=== PATIENT | female | born 1990 | race Caucasian/White ===

== ENCOUNTER → 2018-10-24 | Outpatient (CLI) | payer OTHER ==
--- NOTE | 2018-10-24 14:37 | US ---
EXAMINATION TYPE: US thyroid st tissue head/neck DATE OF EXAM: 10/24/2018 COMPARISON: NONE CLINICAL HISTORY: E07.9 Disorder of thyroid, unspecified. Palpable at left lower neck; patient stated has sore gums left side with known "wisdom tooth" presence. GLAND SIZE: Right Lobe: 4.5 x 2.1 x 1.4 cm Overall Parenchyma: homogenous Left Lobe: 5.0 x 2.3 x 1.7 cm Overall Parenchyma: homogeneous Isthmus Thickness: 0.4 cm NODULES RIGHT: # of nodules measured on right: 0 LEFT: # of nodules measured on left: 1 nodule at patient's palpable. 1. 1.4 X 1.5 x 1.1 cm hypoechoic cystic nodule at the mid pole with well-defined margins. This nod ule is wider than tall and shows no intranodular vascularity. ISTHMUS: # of nodules measured in the isthmus: 0 Bilateral neck scanned: 2 upper neck lymph nodes are noted with larger node = 2.7 x 1.7 x 0.7cm. IMPRESSION: 1. Solitary 1.5 cm simple appearing cystic left thyroid nodule, typically benign. 2. Prominent but nonenlarged lymph nodes are incidentally noted adjacent to the thyroid gland.
== END | disposition home or self-care (01) ==
LOC: RADUSWWP 13:56 → MERGE 14:20
PROVIDERS: ATTEND Family Medicine
DX: E04.1 Nontoxic single thyroid nodule (principal)
CPT/HCPCS: 76536

== ENCOUNTER → 2021-08-23 | Outpatient (CLI) | payer OTHER ==
--- NOTE | 2021-08-24 09:27 | XR ---
EXAM TYPE: LUMBAR SPINE X RAY SERIES COMPARISON: 06/14/2022 HISTORY: Pain TECHNIQUE: 4 views are submitted. FINDINGS: Alignment is anatomic. The pedicles are intact. The transverse processes are intact. There is spon dylolisthesis. Mild narrowing of the disc spaces T11-T12. Spina bifida spina bifida occulta at lumbo sacral junction. Mild superior endplate deformity L1. IMPRESSION: 1. Mild degenerative disc disease lower thoracic spine. 2. Mild superior endplate deformity of L1. If there is a history of previous or recent trauma conside red MRI for further evaluation to exclude mild compression fracture.
--- NOTE | 2021-08-24 09:30 | XR ---
EXAMINATION TYPE: XR thoracic spine 2V DATE OF EXAM: 08/23/2021 COMPARISON: NONE HISTORY: Pain TECHNIQUE: 3 views submitted FINDINGS: Alignment is anatomic. There is no compression deformities. Vertebral body height and disc interspa linda are maintained. Scoliotic curvature of the spine. There is mild disc space narrowing at T11-T12. IMPRESSION: 1. Scoliotic curvature of the spine with mild degenerative disc disease T11-T12. Question a mild supe rior endplate compression deformity of L1. Recommend MRI.
== END | disposition home or self-care (01) ==
LOC: RADXRYALE 15:53
PROVIDERS: ATTEND Nurse Practitioner
DX: M51.34 Other intervertebral disc degeneration, thoracic region (principal); M41.84 Other forms of scoliosis, thoracic region; M43.8X6 Other specified deforming dorsopathies, lumbar region
CPT/HCPCS: 72070; 72100

== ENCOUNTER → 2021-09-15 | Outpatient (CLI) | payer OTHER ==
--- NOTE | 2021-09-15 23:25 | MR ---
EXAMINATION TYPE: MR lumbar spine wo con DATE OF EXAM: 09/15/2021 COMPARISON: Lumbar spine x-ray August 23, 2021 HISTORY: Abnormal x-ray, low back pain that radiates down both legs. Wedge compression fracture. TECHNIQUE: Multiplanar, multisequence imaging of the lumbar spine is performed without IV contrast. FINDINGS: Sagittal images of the lumbar spine redemonstrate stable and satisfactory alignment. Promin ent Schmorl node superior and inferior L1 endplates. Mild anterior wedging correlates with recent x-r ay. The intervertebral discs demonstrate disc desiccation L2-L3 level. Disc space heights are preser patel. The conus medullaris is somewhat low in position ending inferior L2 level without abnormal signa l or clumping of lumbosacral nerve roots. The bone marrow signal intensity is within normal limits. No suspicious edema is present. Axial images show no focal disc disease, or facet degenerative change at any lumbar level. There is no spinal canal stenosis, neural foraminal narrowing, or evidence of nerve root compromise. Paraspina l muscle bulk is maintained. IMPRESSION: Mild chronic wedging or compression of L1 vertebra.
== END | disposition home or self-care (01) ==
LOC: RADMRIMAIN 18:25
PROVIDERS: ATTEND Family Medicine
DX: S32.010B Wedge compression fracture of first lumbar vertebra, initial encounter for open fracture (principal)
CPT/HCPCS: 72148

== ENCOUNTER → 2021-11-07 | Outpatient (CLI) | payer OTHER ==
--- NOTE | 2021-11-07 12:15 | XR ---
EXAM TYPE: LUMBAR SPINE X RAY SERIES COMPARISON: 08/23/2021 HISTORY: Pain TECHNIQUE: 4 views are submitted including frontal, lateral, lateral flexion, and lateral extension v iew. FINDINGS: Alignment is anatomic. The pedicles are intact. The transverse processes are intact. There is no S chmorl's nodes involving L1 with very mild compression of the superior endplate likely chronic. Stabl e from prior exam. Degenerative disc disease stable lower thoracic spine. IMPRESSION: 1. Degenerative disc disease lower thoracic spine. 2. Mild superior endplate compression involving L1 is stable with Schmorl's node compatible with chronometer assembler sienna deformity.
--- NOTE | 2021-11-07 12:16 | XR ---
EXAMINATION TYPE: XR thoracic spine complete DATE OF EXAM: 11/07/2021 COMPARISON: 08/23/2021 HISTORY: Pain TECHNIQUE: 3 views submitted FINDINGS: Alignment is anatomic. There is mild superior endplate deformity of L1 stable. There is mild degener ative disc disease T10-T11 and T11-T12 stable. Scoliotic curvature of the spine noted.. Vertebral adore dy height and disc interspaces are maintained. IMPRESSION: 1. No acute abnormality. Scoliosis is stable from prior exam with mild degenerative disc disease T11 -T12 and T10-T11.
== END | disposition home or self-care (01) ==
LOC: RADXRYALE 11:12
PROVIDERS: ATTEND Family Medicine
DX: M54.50 Low back pain, unspecified (principal)
CPT/HCPCS: 72072; 72110